=== PATIENT | male | born 1960 | race Two or more races ===

== ENCOUNTER 2020-03-07 12:46 | Emergency (ER) | payer OTHER ==
[~2020-03-07] VITALS: Ht 182.9 cm; Wt 86.2 kg
[2020-03-07] MEDS ORDERED: ORPHENADRINE C100 MG PO (22:19)
[2020-03-07] MEDS ORDERED: KETO10TA2 PO (22:19)
== END 2020-03-07 22:38 | disposition home or self-care (01) ==
LOC: ER 12:46
DX: M51.37 Other intervertebral disc degeneration, lumbosacral region (principal); R10.32 Left lower quadrant pain; Z03.818 Encounter for observation for suspected exposure to other biological agents ruled out